=== PATIENT | female | born 1995 | race Caucasian/White ===

== ENCOUNTER 2017-02-26 21:53 | Emergency (ER) | payer MEDICAID, OTHER ==
[~2017-02-26] VITALS: Ht 167.6 cm; Wt 72.6 kg
[2017-02-26] MEDS ORDERED: ETOMIDATE IV SOLN 20 MG/10 ML VIAL IV ONE (21:56)
[2017-02-26] MEDS ORDERED: SUCCINYLCHOLINE INJ 100 MG/5 ML SYR INJ ONE (21:56)
[2017-02-26] MEDS ORDERED: LORazepam INJ 2 MG/ML (ATIVAN) VIAL ONE (21:58)
--- OUTSIDE RECORDS SUMMARY | 2017-02-26 21:59 | XMS REPORT | Continuity of Care Document ---
Author Author [facility] Address Unknown Phone Unavailable Allergies Active Description Code Type Severity Reaction Onset Reported/Identified Relationship to Patient Clinical Status Yes NO NAME AVAILABLE 00670 DRUG N/ A N/A Yes HALOPERIDOL 33077 DRUG INGREDI High Sob~Swelling 02/10/2016 02/10/2016 Yes HALOPERIDOL 89551 DRUG INGREDI N/A Swelling 02/10/2016 02/10/2016 Medications Medication Packaging Start Date Stop Date Route Dosage Sig ALUM T MAG HYDROXIDE-SIMETH 200-200-20 MG/5ML PO SUSP 02/10/2016 Oral 30 4 TIMES DAILY PRN TRAZODONE HCL 100 MG PO TABS Oral 100 BEDTIME PRN OLANZAPINE 10 MG PO TBDP 2015 Oral 10 2 TIMES DAILY PRN ACETAMINOPHEN 325 MG PO TABS Oral 650 EVERY 6 HOURS PRN MAGNESIUM HYDROXIDE 400 MG/5ML PO SUSP 02/10/2016 Oral 30 DAILY PRN QUETIAPINE FUMARATE 25 MG PO TABS 02/10/2016 Oral 25 4 TIMES DAILY PRN DROSPIRENONE-ETHINYL ESTRADIOL 3-0.03 MG PO TABS 02/10/2016 Oral 1 BEDTIME LURASIDONE HCL 40 MG PO TABS Oral 40 BEDTIME ESCITALOPRAM OXALATE 10 MG PO TABS 02/10/2016 Oral 10 BEDTIME MIRTAZAPINE 15 MG PO TABS 2015 Oral 15 BEDTIME OLANZAPINE 10 MG PO TABS 2015 Oral 10 BEDTIME LURASIDONE HCL 40 MG PO TABS Oral 40 DAILY WITH DINNER ESCITALOPRAM OXALATE 20 MG PO TABS 02/10/2016 Oral 20 BEDTIME MECLIZINE HCL 12.5 MG PO TABS Oral 12.5 3 TIMES DAILY PRN ALUM T MAG HYDROXIDE-SIMETH 200-200-20 MG/5ML PO SUSP 03/10/2016 Oral 30 4 TIMES DAILY PRN TRAZODONE HCL 100 MG PO TABS Oral 100 BEDTIME PRN OLANZAPINE 10 MG PO TBDP 2016 Oral 10 2 TIMES DAILY PRN ACETAMINOPHEN 325 MG PO TABS Oral 650 EVERY 6 HOURS PRN MAGNESIUM HYDROXIDE 400 MG/5ML PO SUSP 03/10/2016 Oral 30 DAILY PRN QUETIAPINE FUMARATE 25 MG PO TABS 03/10/2016 Oral 25 4 TIMES DAILY PRN ESCITALOPRAM OXALATE 10 MG PO TABS 03/11/2016 Oral 10 DAILY ARIPIPRAZOLE 10 MG PO TABS 2016 Oral 5 DAILY ZIPRASIDONE MESYLATE 20 MG IM SOLR 03/11/2016 Intramuscular 20 ONCE MIRTAZAPINE 15 MG PO TABS 2016 Oral 15 BEDTIME ZIPRASIDONE MESYLATE 20 MG IM SOLR 03/12/2016 Intramuscular 20 ONCE ARIPIPRAZOLE 15 MG PO TABS 2016 Oral 15 BEDTIME SODIUM CHLORIDE 0.9 % IV BOLUS 04/04/2016 Intravenous 1000 BOLUS ALUM T MAG HYDROXIDE-SIMETH 200-200-20 MG/5ML PO SUSP 04/04/2016 Oral 30 4 TIMES DAILY PRN TRAZODONE HCL 100 MG PO TABS Oral 100 BEDTIME PRN OLANZAPINE 5 MG PO TBDP 2016 Oral 5 2 TIMES DAILY PRN ACETAMINOPHEN 325 MG PO TABS Oral 650 EVERY 6 HOURS PRN MAGNESIUM HYDROXIDE 400 MG/5ML PO SUSP 04/04/2016 Oral 30 DAILY PRN QUETIAPINE FUMARATE 25 MG PO TABS 04/04/2016 Oral 25 4 TIMES DAILY PRN OLANZAPINE 2.5 MG PO TABS 2016 Oral 2.5 DAILY DIPHENHYDRAMINE HCL 50 MG/ML IJ SOLN 04/04/2016 Intramuscular 50 ONCE LURASIDONE HCL 40 MG PO TABS Oral 40 DAILY WITH DINNER DROSPIRENONE-ETHINYL ESTRADIOL 3-0.03 MG PO TABS 04/04/2016 Oral 1 BEDTIME ESCITALOPRAM OXALATE 20 MG PO TABS 04/04/2016 Oral 20 BEDTIME PRAZOSIN HCL 1 MG PO CAPS 2016 Oral 2 BEDTIME MIRTAZAPINE 15 MG PO TABS 2016 Oral 15 BEDTIME OLANZAPINE 10 MG PO TABS 2016 Oral 10 BEDTIME LEVOTHYROXINE SODIUM 50 MCG PO TABS 04/05/2016 Oral 50 EVERY MORNING BEFORE BREAKFAST OLANZAPINE 10 MG PO TBDP 2016 Oral 10 2 TIMES DAILY PRN DIPHENHYDRAMINE HCL 50 MG/ML IJ SOLN 04/06/2016 Intramuscular 50 ONCE DIPHENHYDRAMINE HCL 50 MG/ML IJ SOLN 04/06/2016 Intramuscular 50 PRN HYDROXYZINE HCL 25 MG PO TABS Oral 50 3 TIMES DAILY PRN ALUM T MAG HYDROXIDE-SIMETH 200-200-20 MG/5ML PO SUSP 11/22/2016 Oral 30 4 TIMES DAILY PRN TRAZODONE HCL 100 MG PO TABS 12/2016 Oral 100 BEDTIME PRN OLANZAPINE 10 MG PO TBDP 2016 Oral 10 2 TIMES DAILY PRN ACETAMINOPHEN 325 MG PO TABS 12/2016 Oral 650 EVERY 6 HOURS PRN MAGNESIUM HYDROXIDE 400 MG/5ML PO SUSP 11/22/2016 Oral 30 DAILY PRN QUETIAPINE FUMARATE 25 MG PO TABS 11/22/2016 Oral 25 4 TIMES DAILY PRN DIVALPROEX SODIUM ER 500 MG PO TB24 11/22/2016 Oral 500 2 TIMES DAILY BUSPIRONE HCL 10 MG PO TABS 11/22 Oral 10 2 TIMES DAILY BUSPIRONE HCL 10 MG PO TABS 11/23 Oral 10 3 TIMES DAILY DIPHENHYDRAMINE HCL 50 MG/ML IJ SOLN 11/23/2016 Intramuscular 50 ONCE ZIPRASIDONE MESYLATE 20 MG IM SOLR 11/23/2016 Intramuscular 10 ONCE Problems Date Dx Coded Attending Type Code Diagnosis Diagnosed By 02/11/2016 ADRIANA NAJERA V [id number] Suicidal [facility]ANIA, [facility] 02/11/2016 ADRIANA NAJERA P F32.9 Major depressive disorder, single episode, unspecified DANIA, [facility] 02/11/2016 ADRIANA NAJERA P R45.851 Suicidal ideations ADRIANA NAJERA 03/13/2016 IESHA AGUIRRE V [id number] Suicide Attempt IESHA AGUIRRE 03/13/2016 IESHA AGUIRRE T14.91 Suicide attempt IESHA AGUIRRE 04/07/2016 IESHA AGUIRRE V 046150 Drug Overdose IESHA AGUIRRE 04/07/2016 IESHA AGUIRRE V E03.9 Hypothyroidism, unspecified IESHA AGUIRRE 04/07/2016 IESHA AGUIRRE V F33.2 Major depressive disorder, recurrent severe without psychotic features TIMOTHY, IESHA 04/07/2016 IESHA AGUIRRE A F39 Unspecified mood (affective) disorder TIMOTHY, IESHA 04/07/2016 IESHA AGUIRRE V R20.2 Paresthesia of skin TIMOTHY, IESHA 04/07/2016 IESHA AGUIRRE T14.91 Suicide attempt TIMOTHY, IESHA 11/23/2016 IESHA AGUIRRE V [id number] Suicidal TIMOTHY, IESHA 11/23/2016 IESHA AGUIRRE P F33.2 Major depressive disorder, recurrent severe without psychotic features (HCC) TIMOTHY, IESHA 11/23/2016 IESHA AGUIRRE V F39 Unspecified mood (affective) disorder (HCC) TIMOTHY, IESHA 11/23/2016 IESHA AGUIRRE V F41.1 Generalized anxiety disorder IESHA AGUIRRE Procedures There is no data. Results Test Result Range T4, FREE - 02/10/16 05:45 FREE T4 0.94 ng/dL 0.70-1.71 CBC WITH AUTO DIFFERENTIAL - 04/03/16 21:47 BASOPHILS RELATIVE PERCENT 0.9 % 0.0-2.5 EOSINOPHILS RELATIVE PERCENT 2.7 % <=5.0 HEMATOCRIT 36.3 % 34.9-44.5 HEMOGLOBIN 12.7 g/dL 12.0-15.5 LYMPHOCYTES RELATIVE PERCENT 23.5 % 22.0-49.0 MEAN CORPUSCULAR HEMOGLOBIN 31.1 pg 26.0-34.0 MEAN CORPUSCULAR HEMOGLOBIN CONC 35.0 g/dL 31.0-37.0 MEAN CORPUSCULAR VOLUME 88.8 fL 81.6-98.3 MONOCYTES RELATIVE PERCENT 11.2 % 2.0-9.0 NEUTROPHILS RELATIVE PERCENT 61.7 % 40.0-75.0 NUCLEATED RED BLOOD CELLS 0 /100 <=0 PLATELET COUNT 350 10E9/L 150-450 RED BLOOD CELL COUNT 4.09 10E12/L 3.90-5.03 RED CELL DISTRIBUTION WIDTH 11.8 % 11.9-15.5 [id number] 9.2 10E9/L 3.5-10.5 [id number] 2.17 10E9/L 0.90-2.90 8585952 1.03 10E9/L 0.30-0.90 7687689 0.25 10E9/L 0.05-0.50 4665122 5.70 10E9/L 1.70-7.00 4495047 0.08 10E9/L 0.00-0.30 [id number] 0 % CK - 04/03/16 21:47 CPK 256 U/L 26-140 T4, FREE - 04/03/16 21:47 FREE T4 0.78 ng/dL 0.70-1.71 EXTRA LIGHT BLUE TOP - 04/03/16 21:47 1324 Extra tube in lab EXTRA LIGHT GREEN TOP - 04/03/16 21:47 1324 Extra tube in lab URINE CULTURE - 04/03/16 22:32 [id number] No Growth DRUG SCREEN (8) MEDICAL - 04/03/16 22:32 AMPHETAMINE Negative Cutoff 1000 ng/mL Negative BARBITURATES Negative Cutoff 200 ng/mL Negative BENZODIAZEPINES Negative Cutoff 200 ng/mL Negative COCAINE (METABOLITE) Negative Cutoff 300 ng/mL Negative MDMA URINE Negative Cutoff 500 ng/mL Negative OPIATES Positive Cutoff 300 ng/mL Negative PCP Negative Cutoff 25 ng/mL Negative PH UA 7.0 5.0-8.0 SPECIFIC GRAVITY UA 1.017 1.003-1.030 THC Negative Cutoff 50 ng/mL Negative SALICYLATES - 04/03/16 22:32 SALICYLATE, URINE Negative TROPONIN I - 04/05/16 06:35 TROPONIN I < ng/mL 0.000-0.040 Encounters ACCT No. Visit Date/Time Discharge Status Pt. Type Provider Facility Loc./Unit Complaint [id number] 11/22/2016 21:08:00 11/23/2016 17:30:00 DIS Inpatient [facility] [id number] 04/03/2016 21:31:44 04/07/2016 17:38:00 DIS Inpatient [facility] [id number] 03/10/2016 17:40:00 03/13/2016 13:55:00 DIS Inpatient [facility] [id number] 02/10/2016 01:56:03 02/11/2016 19:29:00 DIS Inpatient ADRIANA NAJERA [facility] [id number] 02/10/2016 03:23:11 Document Registration
[2017-02-26] MEDS ORDERED: NS IV 1000 ML 1,000 ML IV ONE (22:03)
[2017-02-26] MEDS ORDERED: LEVETIRACETAM INJECTION 500 MG in NS (IVPB) 50 ML IV ONE ×2 (22:15→23:15)
[2017-02-26] MEDS ORDERED: DIAZEPAM INJ 10 MG/2 ML (VALIUM) SYR ONE (22:18)
[2017-02-26 22:22] LABS: BASOPHILS # (AUTO) 0.1 10^3/uL (0.0-0.1); BASOPHILS % (AUTO) 1 % (0-10); EOSINOPHILS # (AUTO) 0.3 10^3/uL (0.0-0.3); EOSINOPHILS % (AUTO) 3 % (0-10); HEMATOCRIT 33 % (35-52); HEMOGLOBIN 11.3 G/DL (11.5-16.0); LYMPHOCYTES # (AUTO) 2.2 X 10^3 (1.0-4.0); LYMPHOCYTES % (AUTO) 24 % (12-44); MEAN CORPUSCULAR HEMOGLOBIN 30 PG (25-34); MEAN CORPUSCULAR HGB CONC 35 G/DL (32-36); MEAN CORPUSCULAR VOLUME 85 FL (80-99); MEAN PLATELET VOLUME 9.2 FL (7.4-10.4); MONOCYTES # (AUTO) 1.2 X 10^3 (0.0-1.0); MONOCYTES % (AUTO) 13 % (0-12); NEUTROPHILS # (AUTO) 5.2 X 10^3 (1.8-7.8); NEUTROPHILS % (AUTO) 59 % (42-75); PLATELET COUNT 372 10^3/uL (130-400); RED BLOOD COUNT 3.83 10^6/uL (4.35-5.85); RED CELL DISTRIBUTION WIDTH 11.9 % (10.0-14.5); WHITE BLOOD COUNT 8.9 10^3/uL (4.3-11.0)
[2017-02-26 22:42] LABS: BILIRUBIN,URINE NEGATIVE (NEGATIVE); CLARITY,URINE CLEAR; COLOR,URINE YELLOW; GLUCOSE, URINE (UA) NEGATIVE (NEGATIVE); KETONES,URINE NEGATIVE (NEGATIVE); LEUKOCYTE ESTERASE ,URINE NEGATIVE (NEGATIVE); NITRITE,URINE NEGATIVE (NEGATIVE); PH,URINE 7 (5-9); PROTEIN,URINE NEGATIVE (NEGATIVE); UROBILINOGEN,URINE NORMAL (NORMAL)
[2017-02-26 22:46] LABS: ALANINE AMINOTRANSFERASE 10 U/L (0-55); ALKALINE PHOSPHATASE 60 U/L (40-136); BILIRUBIN,TOTAL 0.2 MG/DL (0.1-1.0); BUN/CREATININE RATIO 5; CALCIUM 8.6 MG/DL (8.5-10.1); CARBON DIOXIDE 19 MMOL/L (21-32); CHLORIDE 107 MMOL/L (98-107); CREATINE KINASE 102 U/L (29-168); CREATININE SERUM 0.76 MG/DL (0.60-1.30); GFR ESTIMATED > 60; GLUCOSE 107 MG/DL (70-105); MAGNESIUM 2.1 MG/DL (1.8-2.4); POTASSIUM 3.3 MMOL/L (3.6-5.0); SODIUM 140 MMOL/L (135-145); TOTAL PROTEIN 7.2 GM/DL (6.4-8.2)
[2017-02-26 22:49] LABS: AMPHETAMINE SCREEN, URINE NEGATIVE (NEGATIVE); BARBITURATE SCREEN URINE POSITIVE (NEGATIVE); BENZODIAZEPINES SCREEN URINE POSITIVE (NEGATIVE); CANNABINOID SCREEN, URINE NEGATIVE (NEGATIVE); COCAINE SCREEN URINE NEGATIVE (NEGATIVE); METHADONE STAT NEGATIVE (NEGATIVE); METHAMPHETAMINE SCREEN URINE S NEGATIVE (NEGATIVE); OPIATE SCREEN URINE NEGATIVE (NEGATIVE); OXYCODONE STAT NEGATIVE (NEGATIVE); PROPOXYPHENE STAT NEGATIVE (NEGATIVE); TRICYCLIC ANTIDEPRESSANTS SCRE NEGATIVE (NEGATIVE)
[2017-02-26 22:51] LABS: SQUAMOUS EPITHELIAL CELL,UR RARE /HPF
[2017-02-26 23:05] LABS: TSH (THYROID ANALYZER) 9.57 UIU/ML (0.35-4.94)
[2017-02-26] MEDS ORDERED: MIDAZOLAM 5 MG/5 ML (VERSED) VIAL ONE (23:38)
[2017-02-27 00:08] LABS: FREE T4 (FREE THYROXINE) 0.69 NG/DL (0.70-1.48)
--- NOTE | 2017-02-27 00:39 | ED Neurological Problem ---
General Chief Complaint: Neurological Problems Stated Complaint: SEIZURE Nursing Triage Note: PT TO ER BY PRIVATE VEHICLE. [facility] INDIAN NANNY STATES THAT HE IS A ROUGHER HELPER AND PICKED HER UP FROM [place] AND WAS TAKING HER BACK TO [place]. HE STATES WHILE IN ROUTE, PT HAD A SEIZURE. INDIAN NANNY STATES THAT PT WAS AT [facility] THIS MORNING AND YESTERDAY. PT LEFT AMA THIS AM. PT IS NOT RESPONDING TO STAFF. PT DID BARE WEIGHT WHEN TRANSFERRING FROM WHEELCHAIR TO ER CART. Source: patient, other (patient's friend "Goldy") Exam Limitations: clinical condition History of Present Illness Time seen by provider: 21:55 Initial Comments This 20-year-old young lady is brought to the emergency room unresponsive by a friend who is known to the patient over the past couple of days as a cable maker. Patient apparently has been staying at the [facility] in [place], [place] ( [facility]). Her friend "Goldy" has been transporting her to and from [facility] for seizure disorder. Patient identifies him as her "best friend". Patient has been having recurrent seizures over the past couple of days. She has been seen multiple times at [facility] for these seizures but has been leaving AGAINST MEDICAL ADVICE. She reports seizure started about a year ago after a head injury. She was initially unresponsive but occasionally does talk between these seizure episodes. I contacted the [facility] at 22:[address] Green who had seen her last night. She was actually intubated at that time because she was demonstrating no gag reflex. She was admitted to the ICU and left AGAINST MEDICAL ADVICE this morning after extubated. Her workup there was unremarkable including CT scan and lumbar puncture. Dr. Green also stated that patient's father reported to ER staff that patient told father she sometimes fakes seizures. She has been admitted at the psychiatric hospital in [place], [place] for behavioral health issues. She states a history of depression but states she is not suicidal. She reports she is normally on Keppra. Goldy states that she typically has seizures in clusters of 5 or 6. He has observed 4-5 episodes of these clusters of seizure- like activity. Patient reports at one point that she has abdominal pain. This was assessed by CT scan at [facility]. Patient seizure-like activity involves the torso and spares the extremities and head. She has had no incontinence during these episodes. Pulse ox levels do not change during the episodes but heart rate increases. Allergies and Home Medications Allergies Coded Allergies: haloperidol (Unverified Allergy, Unknown, 02/27/17) Constitutional: no symptoms reported Eyes: No Symptoms Reported Ears, Nose, Mouth, Throat: no symptoms reported Respiratory: no symptoms reported Cardiovascular: no symptoms reported Gastrointestinal: see HPI, abdominal pain Genitourinary: no symptoms reported Musculoskeletal: no symptoms reported Skin: no symptoms reported Psychiatric/Neurological: See HPI Endocrine: No Symptoms Reported Hematologic/Lymphatic: No Symptoms Reported Past Pqfuinq-Sfjnqu-Qoosvn Hx Patient Social History Alcohol Use: Denies Use Recent Foreign Travel: No Contact w/Someone Who Travel: No Recent Infectious Disease Expo: No Ebola Symptoms: Denies Symptoms Listed Surgeries History of Surgeries: No (unknown) Respiratory History of Respiratory Disorde: No Cardiovascular History of Cardiac Disorders: No Neurological History of Neurological Disord: Yes Neurological Disorders: Seizure Disorder Reproductive System : No Genitourinary History of Genitourinary Disor: No Gastrointestinal History of Gastrointestinal Di: No Musculoskeletal History of Musculoskeletal Dis: No Endocrine History of Endocrine Disorders: No HEENT History of HEENT Disorders: No Cancer History of Cancer: No Psychosocial History of Psychiatric Problem: Yes Behavioral Health Disorders: Depression Physical Exam Vital Signs Vital Sign - Last 12Hours 02/26/17 02/27/17 21:58 03:27 Temp 98.3 Pulse 120 Resp 25 B/P (MAP) 144/90 Pulse Ox 100 O2 Delivery Room Air Capillary Refill : General Appearance: WD/WN, no apparent distress HEENT: PERRL/EOMI (pupils dilated but responsive and equal bilaterally), normal ENT inspection Respiratory: lungs clear, normal breath sounds, no respiratory distress, no accessory muscle use Cardiovascular: regular rate, rhythm, no edema, no murmur Gastrointestinal: normal bowel sounds, non tender, soft Extremities: normal inspection, no pedal edema Neurologic/Psychiatric: other (patient intermittently has seizure-like activity with waxing and waning responsiveness. At times she talks and answers questions appropriately. Convulsions involved primarily the torso with limited movement of the extremities and head.) Skin: normal color, warm/dry Date of ETT Placement: Feb 27, 2017 Time of ETT Placement: 02:58 Intubation Method: orotracheal Tube Size: 7.5 Medications: Etomidate, Succinylcholine Breath Sounds after Intubation: bilateral-equal Intubation Complications: no complications Post Intubation Xray: Yes Progress/Results/Core Measures Results/Orders Lab Results Laboratory Tests Test 02/26/17 21:58 02/26/17 22:15 02/26/17 22:30 02/27/17 02:38 Range/Units Glucometer 98 85 70-110 MG/DL White Blood Count 8.9 4.3-11.0 10^3/uL Red Blood Count 3.83 L 4.35-5.85 10^6/uL Hemoglobin 11.3 L 11.5-16.0 G/DL Hematocrit 33 L 35-52 % Mean Corpuscular Volume 85 80-99 FL Mean Corpuscular Hemoglobin 30 25-34 PG Mean Corpuscular Hemoglobin Concent 35 32-36 G/DL Red Cell Distribution Width 11.9 10.0-14.5 % Platelet Count 372 130-400 10^3/uL Mean Platelet Volume 9.2 7.4-10.4 FL Neutrophils (%) (Auto) 59 42-75 % Lymphocytes (%) (Auto) 24 12-44 % Monocytes (%) (Auto) 13 H 0-12 % Eosinophils (%) (Auto) 3 0-10 % Basophils (%) (Auto) 1 0-10 % Neutrophils # (Auto) 5.2 1.8-7.8 X 10^3 Lymphocytes # (Auto) 2.2 1.0-4.0 X 10^3 Monocytes # (Auto) 1.2 H 0.0-1.0 X 10^3 Eosinophils # (Auto) 0.3 0.0-0.3 10^3/uL Basophils # (Auto) 0.1 0.0-0.1 10^3/uL Sodium Level 140 135-145 MMOL/L Potassium Level 3.3 L 3.6-5.0 MMOL/L Chloride Level 107 98-107 MMOL/L Carbon Dioxide Level 19 L 21-32 MMOL/L Anion Gap 14 5-14 MMOL/L Blood Urea Nitrogen 4 L 7-18 MG/DL Creatinine 0.76 0.60-1.30 MG/DL Estimat Glomerular Filtration Rate > 60 BUN/Creatinine Ratio 5 Glucose Level 107 H 70-105 MG/DL Calcium Level 8.6 8.5-10.1 MG/DL Magnesium Level 2.1 1.8-2.4 MG/DL Total Bilirubin 0.2 0.1-1.0 MG/DL Aspartate Amino Transf (AST/SGOT) 15 5-34 U/L Alanine Aminotransferase (ALT/SGPT) 10 0-55 U/L Alkaline Phosphatase 60 40-136 U/L Total Creatine Kinase 102 29-168 U/L Total Protein 7.2 6.4-8.2 GM/DL Albumin 4.0 3.2-4.5 GM/DL Free Thyroxine 0.69 L 0.70-1.48 NG/DL TSH [place] Testing 9.57 H 0.35-4.94 UIU/ML Serum Test, Qualitative NEGATIVE NEGATIVE Valproic Acid (Depakene) Level < 2.0 L 50.0-100.0 UG/ML Serum Alcohol < 10 <10 MG/DL Urine Color YELLOW Urine Clarity CLEAR Urine pH 7 5-9 Urine Specific [place] 1.005 L 1.016-1.022 Urine Protein NEGATIVE NEGATIVE Urine Glucose (UA) NEGATIVE NEGATIVE Urine Ketones NEGATIVE NEGATIVE Urine Nitrite NEGATIVE NEGATIVE Urine Bilirubin NEGATIVE NEGATIVE Urine Urobilinogen NORMAL NORMAL MG/DL Urine Leukocyte Esterase NEGATIVE NEGATIVE Urine RBC (Auto) NEGATIVE NEGATIVE Urine RBC NONE /HPF Urine WBC NONE /HPF Urine Squamous Epithelial Cells RARE /HPF Urine Crystals NONE /LPF Urine Bacteria NONE /HPF Urine Casts NONE /LPF Urine Mucus NEGATIVE /LPF Urine Culture Indicated NO Urine Opiates Screen NEGATIVE NEGATIVE Urine Oxycodone Screen NEGATIVE NEGATIVE Urine Methadone Screen NEGATIVE NEGATIVE Urine Propoxyphene Screen NEGATIVE NEGATIVE Urine Barbiturates Screen POSITIVE H NEGATIVE Ur Tricyclic Antidepressants Screen NEGATIVE NEGATIVE Urine Phencyclidine Screen NEGATIVE NEGATIVE Urine Amphetamines Screen NEGATIVE NEGATIVE Urine Methamphetamines Screen NEGATIVE NEGATIVE Urine Benzodiazepines Screen POSITIVE H NEGATIVE Urine Cocaine Screen NEGATIVE NEGATIVE Urine Cannabinoids Screen NEGATIVE NEGATIVE Micro Results Microbiology 02/26/17 Influenza Types A,B Antigen (PATRICE) - Final, Complete My Orders Orders - LUIS ANTONIO PORTILLO MD Lorazepam Injection (Ativan Injection) (02/26/17 21:58) Alcohol (02/26/17 22:03) Cbc With Automated Diff (02/26/17 22:03) Comprehensive Metabolic Panel (02/26/17 22:03) Creatine Kinase (02/26/17 22:03) Drug Screen Stat (Urine) (02/26/17 22:03) Hcg,Qualitative Serum (02/26/17 22:03) Magnesium (02/26/17 22:03) Thyroid Analyzer (02/26/17 22:03) Ua Culture If Indicated (02/26/17 22:03) Influenza A And B Antigens (02/26/17 22:03) Saline Lock/Iv-Start (02/26/17 22:03) Chest 1 View, Ap/Pa Only (02/26/17 22:03) Best Cath Insertion (02/26/17 22:03) Ns Iv 1000 Ml (Sodium Chloride 0.9%) (02/26/17 22:03) Levetiracetam Injection (Keppra Injectio (02/26/17 22:15) Diazepam Injection (Valium Injection) (02/26/17 22:18) Dilantin (Phenytoin) (02/26/17 22:39) Valproic Acid (02/26/17 22:39) Levetiracetam Injection (Keppra Injectio (02/26/17 23:15) Free T4 (Free Thyroxine) (02/26/17 22:15) Midazolam Injection (Versed Injection) (02/26/17 23:38) Diazepam Injection (Valium Injection) (02/27/17 01:00) Fosphenytoin Injection (Cerebyx Injectio (02/27/17 01:00) Phenytoin Injection (Dilantin Injection) (02/27/17 01:15) Valproate Inj (Non-Formulary) (Depacon ( (02/27/17 01:15) Ns (Ivpb) (Sodium Chloride 0.9% Ivpb Bag (02/27/17 01:33) Midazolam Injection (Versed Injection) (02/27/17 02:15) Midazolam Injection (Versed Injection) (02/27/17 02:09) Lactated Ringers (Lr 1000 Ml Iv Solution (02/27/17 02:59) Chest 1 View, Ap/Pa Only (02/27/17 03:02) Medications Given in ED Current Medications Medications Dose Ordered Sig/Mustapha Route Start Time Stop Time Status Last Admin Dose Admin Diazepam 5 mg ONCE ONCE IV 02/27/17 01:00 02/27/17 01:02 DC 02/27/17 00:53 5 MG Diazepam 10 mg STK-MED ONCE .ROUTE 02/26/17 22:18 02/26/17 22:21 DC 02/26/17 22:18 5 MG Lactated Ringer's 1,000 ml @ 0 mls/hr Q0M ONCE IV 02/27/17 02:59 02/27/17 03:00 DC 02/27/17 03:32 0 MLS/HR Levetiracetam 500 mg/Sodium Chloride 55 ml @ 220 mls/hr ONCE ONCE IV 02/26/17 22:15 02/26/17 22:29 DC 02/26/17 22:20 220 MLS/HR Levetiracetam 500 mg/Sodium Chloride 55 ml @ 220 mls/hr ONCE ONCE IV 02/26/17 23:15 02/26/17 23:29 DC 02/26/17 23:19 220 MLS/HR Lorazepam 2 mg STK-MED ONCE .ROUTE 02/26/17 21:58 02/26/17 22:02 DC 02/26/17 22:00 2 MG Midazolam HCl 5 mg STK-MED ONCE .ROUTE 02/26/17 23:38 02/26/17 23:41 DC 02/26/17 23:43 5 MG Midazolam HCl 5 mg STK-MED ONCE .ROUTE 02/27/17 02:09 02/27/17 02:12 DC 02/27/17 02:15 5 MG Sodium Chloride 1,000 ml @ 0 mls/hr Q0M ONCE IV 02/26/17 22:03 02/26/17 22:08 DC 02/26/17 22:50 1,000 MLS/HR Valproate Sodium 1000 mg/Sodium Chloride 110 ml @ 110 mls/hr ONCE ONCE IV 02/27/17 01:15 02/27/17 02:14 DC 02/27/17 01:41 110 MLS/HR Vital Signs/I&O Vital Sign - Last 12Hours 02/26/17 02/27/17 21:58 03:27 Temp 98.3 98.0 Pulse 120 70 Resp 25 20 B/P (MAP) 144/90 Pulse Ox 100 O2 Delivery Room Air Room Air Intake and Output 02/26/17 23:59 Intake Total 1110 ml Balance 1110 ml Progress Note #1: Time: 00:00 Progress Note Patient has received Ativan 2 mg IM, followed by Valium 5 mg IV, followed by Keppra 1000 mg IV. Patient continues to have intermittent seizure-like activity. The episodes last approximately 15-30 seconds. Heart rate will increase the oxygen saturation remains in the upper 90s during these episodes. The convulsions involve the torso but not the arms or legs. Patient is unresponsive during the episodes. I contacted Dr. Paredes at 22:50. He is the neurologist on-call for [facility] and is familiar with this patient. He agrees transfer would be appropriate so the patient could be assessed by neurology and psychiatric services. He also reported patient had a negative EEG performed at [facility] but concurrent seizure and pseudoseizure cannot be completely ruled out. Transfer center and then paged to the hospitalist. The hospitalist service declined to accept the patient because she has left their facility 3 times AGAINST MEDICAL ADVICE. Versed 5 mg IV was given at 23:43 after Keppra infused and she had another seizure-like episode. Progress Note #2: Time: 00:20 Progress Note Case was reviewed with Dr. Blake, hospitalist at [facility] in [place]. He declined transfer of this patient because they are on ICU diversion. [facility] was then contacted. I am awaiting a call back from the triage nurse. Patient continues to have intermittent seizure-like activity with episodes lasting 15-30 seconds. She has been intermittently awake and talking between the episodes. Progress Note #3: Time: 00:57 Progress Note Patient continues to have brief episodes of seizure-like activity with some lucid conversation in between some of them. The frequency is variable. Another dose of Valium 5 mg has been administered and a loading dose of fosphenytoin has been ordered to initiate while awaiting a call back from [facility]. It was noted that patient has thyroid imbalance. She does have a history of hypothyroidism. Progress Note #4: Time: 02:27 Progress Note Transfer was accepted by Dr. Hager, , neuro in home sales consultant at [facility]. Initially we planned to transfer her by ground but EMS will not drive to [place] with ice on the roads. Patient also has had multiple prolonged seizure-like episodes since except as to [facility]. For this reason she will be intubated for transfer. [facility] is in route for the transfer. Patient received an additional Versed 5 mg dose. Depakote is still infusing. She continues to have seizure-like episodes. She does continue to talk between the episodes on occasion. [facility] was provided an update with the change in transfer plans and they are agreeable. Progress Note #5: Time: 03:00 Progress Note Patient's mental status did improve. She was actually awake and alert and able to sit up and signed papers for transfer. Patient was agreeable to transfer and intubation. Although she was alert at the time of transport team arrival, it was still felt safer to intubate her for transfer as she had recently had multiple prolonged seizures, one lasting greater than 5 minutes. Patient was ultimately intubated using etomidate 20 mg and succinylcholine 100 mg. Progress Note #6: Time: :26 Progress Note Patient departed intubated with [facility] bound for [facility]. Diagnostic Imaging Diagonstic Imaging: Xray Plain Films/CT/US/NM/MRI: chest Comments Chest x-ray viewed by me. Report not yet available. No acute abnormalities appreciated. Diagonstic Imaging: Xray Plain Films/CT/US/NM/MRI: chest Comments Chest x-ray viewed by me. ET tube in good position. Report not yet available. Critical Care Note Critical Care Start Time: 02:58 Stop Time: 03:18 Progress 03:13 - Patient experienced a drop in oxygen saturation into the 70s. She was found to have an equal chest rise and decreased breath sounds on the left. ET tube was pulled back and breath sounds returned to the left side of the chest. Oxygen saturations recovered. Patient required further sedation during ET tube adjustment. She received an additional Versed 5 mg and fentanyl 100 g. 03:18 - ET tube in good position on x-ray. Options saturations at 100 percent. Departure Impression Impression: Primary Impression: Recurrent seizures Additional Impression: Thyroid dysfunction Disposition: XFER SHT-TRM HOSP Condition: Stable Transfer Transfer Facility: [facility] Method of Transfer: Air Departure-Patient Inst. Decision time for Depature: 03:26 Referrals: NO,LOCAL PHYSICIAN (PCP/Family) Primary Care Physician LUIS ANTONIO PORTILLO MD Feb 27, 2017 00:39
[2017-02-27] MEDS ORDERED: DIAZEPAM INJ 10 MG/2 ML (VALIUM) SYR IV ONE (01:00)
[2017-02-27] MEDS ORDERED: FOSPHENYTOIN 50 MG/ML 2 ML (cereBYX) VIAL IV ONE (01:00)
[2017-02-27] MEDS ORDERED: NS IV ONE (01:15)
[2017-02-27] MEDS ORDERED: VALPROATE IV ONE (01:15)
[2017-02-27] MEDS ORDERED: PHENYTOIN INJECTION 1,000 MG in NS (IVPB) 50 ML, 0.2 MICRON FILTER IV SET 1 EACH IV ONE ×3 (01:15)
[2017-02-27] MEDS ORDERED: NS (IVPB) 100 ML ONE (01:33)
[2017-02-27] MEDS ORDERED: MIDAZOLAM 5 MG/5 ML (VERSED) VIAL ONE (02:09)
[2017-02-27] MEDS ORDERED: MIDAZOLAM 5 MG/5 ML (VERSED) VIAL IVP ONE (02:15)
[2017-02-27] MEDS ORDERED: LACTATED RINGERS 1,000 ML IV ONE (02:59)
--- NOTE | 2017-02-27 06:43 | Diagnostic Imaging Report ---
INDICATION: Seizure and unresponsiveness. 2231 hours. COMPARISON: No previous study is available for comparison at this time. FINDINGS: Heart size and pulmonary vasculature are within normal limits, and the lungs are clear, bilaterally. IMPRESSION: Unremarkable chest. Dictated by: Dictated on workstation # [id number]
--- NOTE | 2017-02-27 06:45 | Diagnostic Imaging Report ---
INDICATION: Respiratory failure. Single AP view of the chest is obtained at 0316 hours. Comparison is made study of 02/26/2017. FINDINGS: Heart size and pulmonary vascularity are within normal limits. There is no evidence of pneumothorax or consolidation. Endotracheal tube has been placed with tip at the thoracic inlet. Nasogastric tube passes below the diaphragm. Mildly prominent interstitial markings in the left lung base may be due to interstitial edema or pneumonitis. IMPRESSION: Endotracheal tube reaches the thoracic inlet. There may be mild interstitial edema or pneumonitis in the left lung base. Otherwise no complication is seen. Dictated by: Dictated on workstation # [id number]
== END 2017-02-27 03:27 | disposition short-term general hospital (02) ==
LOC: ER 21:55
DX: G40.909 Epilepsy, unspecified, not intractable, without status epilepticus (principal); E07.9 Disorder of thyroid, unspecified; F32.9 Major depressive disorder, single episode, unspecified
CPT/HCPCS: 31500; 36415; 51702; 71045; 80053; 80164; 80185; 80306; 80320; 81000; 82550; 82962; 83735; 84439; 84443; 84703; 85025; 87804; 96365; 96367; 96375; 96376

== ENCOUNTER 2017-02-28 13:36 | Emergency (ER) | payer SELFPAY ==
[~2017-02-28] VITALS: Ht 162.6 cm; Wt 68.0 kg
[~2017-02-28 13:36] MED LIST: AMMONIA INHALATION 0.33 ML AMP ONE; NALOXONE 2 MG/2 ML (NARCAN) SYR ONE
--- OUTSIDE RECORDS SUMMARY | 2017-02-28 13:42 | XMS REPORT | Continuity of Care Document ---
Author Author [facility] Address Unknown Phone Unavailable Allergies Active Description Code Type Severity Reaction Onset Reported/Identified Relationship to Patient Clinical Status Yes NO NAME AVAILABLE 81137 DRUG N/ A N/A Yes HALOPERIDOL 18923 DRUG INGREDI High Sob~Swelling 02/10/2016 02/10/2016 Yes HALOPERIDOL 37290 DRUG INGREDI N/A Swelling 02/10/2016 02/10/2016 Medications [...] Diagnosis Diagnosed By 02/11/2016 ADRIANA NAJERA V 970999 Suicidal [facility], [facility] 02/11/2016 ADRIANA NAJERA P F32.9 Major depressive disorder, single episode, unspecified [facility]ANIA, [facility] 02/11/2016 ADRIANA NAJERA P R45.851 Suicidal ideations ADRIANA NAJERA 03/13/2016 IESHA AGUIRRE V 146375 Suicide Attempt IESHA AGUIRRE 03/13/2016 IESHA AGUIRRE T14.91 Suicide attempt IESHA AGUIRRE 04/07/2016 IESHA AGUIRRE V 011402 Drug Overdose IESHA AGUIRRE 04/07/2016 IESHA AGUIRRE V E03.9 Hypothyroidism, unspecified IESHA AGUIRRE 04/07/2016 IESHA AGUIRRE V F33.2 Major depressive disorder, recurrent severe without psychotic features TIMOTHY, IESHA 04/07/2016 IESHA AGUIRRE A F39 Unspecified mood (affective) disorder TIMOTHY, IESHA 04/07/2016 IESHA AGUIRRE V R20.2 Paresthesia of skin TIMOTHY, IESHA 04/07/2016 IESHA AGUIRRE T14.91 Suicide attempt TIMOTHY, IESHA 11/23/2016 IESHA AGUIRRE V 445759 Suicidal TIMOTHY, IESHA 11/23/2016 IESHA AGUIRRE P [...] RED CELL DISTRIBUTION WIDTH 11.8 % 11.9-15.5 0250843 9.2 10E9/L 3.5-10.5 7617901 2.17 10E9/L 0.90-2.90 4351847 1.03 10E9/L 0.30-0.90 8046006 0.25 10E9/L 0.05-0.50 8645411 5.70 10E9/L 1.70-7.00 [id number] 0.08 10E9/L 0.00-0.30 6411143 0 % CK - 04/03/16 21:47 CPK 256 U/L 26-140 T4, FREE - 04/03/16 21:47 FREE T4 0.78 ng/dL 0.70-1.71 EXTRA LIGHT BLUE TOP - 04/03/16 21:47 1324 Extra tube in lab EXTRA LIGHT GREEN TOP - 04/03/16 21:47 1324 Extra tube in lab URINE CULTURE - 04/03/16 22:32 [id number] No Growth DRUG SCREEN (8) MEDICAL - [...] Status Pt. Type Provider Facility Loc./Unit Complaint [id number] 11/22/2016 21:08:00 11/23/2016 17:30:00 DIS Inpatient [facility] [id number] 04/03/2016 21:31:44 04/07/2016 17:38:00 DIS Inpatient [facility] [id number] 03/10/2016 17:40:00 03/13/2016 13:55:00 DIS Inpatient [facility] [id number] 02/10/2016 01:56:03 02/11/2016 19:29:00 DIS Inpatient ADRIANA NAJERA [facility] [id number] 02/10/2016 03:23:11 Document Registration
[2017-02-28] MEDS ORDERED: AMMONIA INHALATION 0.33 ML AMP ONE (13:47)
[2017-02-28 14:05] LABS: BASOPHILS # (AUTO) 0.1 10^3/uL (0.0-0.1); BASOPHILS % (AUTO) 1 % (0-10); EOSINOPHILS # (AUTO) 0.5 10^3/uL (0.0-0.3); EOSINOPHILS % (AUTO) 7 % (0-10); HEMATOCRIT 33 % (35-52); HEMOGLOBIN 11.2 G/DL (11.5-16.0); LYMPHOCYTES % (AUTO) 25 % (12-44); MEAN CORPUSCULAR HEMOGLOBIN 29 PG (25-34); MEAN CORPUSCULAR HGB CONC 34 G/DL (32-36); MEAN CORPUSCULAR VOLUME 85 FL (80-99); MEAN PLATELET VOLUME 9.6 FL (7.4-10.4); MONOCYTES % (AUTO) 13 % (0-12); NEUTROPHILS # (AUTO) 4.3 X 10^3 (1.8-7.8); NEUTROPHILS % (AUTO) 54 % (42-75); PLATELET COUNT 380 10^3/uL (130-400); RED BLOOD COUNT 3.83 10^6/uL (4.35-5.85); RED CELL DISTRIBUTION WIDTH 12.1 % (10.0-14.5)
[2017-02-28 14:08] LABS: BILIRUBIN,URINE NEGATIVE (NEGATIVE); CLARITY,URINE CLEAR; COLOR,URINE YELLOW; GLUCOSE, URINE (UA) NEGATIVE (NEGATIVE); KETONES,URINE 1+ (NEGATIVE); LEUKOCYTE ESTERASE ,URINE 3+ (NEGATIVE); NITRITE,URINE NEGATIVE (NEGATIVE); PH,URINE 7 (5-9); PROTEIN,URINE NEGATIVE (NEGATIVE); UROBILINOGEN,URINE 4 MG/DL (NORMAL)
[2017-02-28 14:18] LABS: BACTERIA,URINE MODERATE /HPF; PROTHROMBIN TIME PATIENT 13.2 SEC (12.2-14.7); RBC,URINE RARE /HPF; WBC,URINE 25-50 /HPF
[2017-02-28 14:19] LABS: AMPHETAMINE SCREEN, URINE NEGATIVE (NEGATIVE); BARBITURATE SCREEN URINE POSITIVE (NEGATIVE); BENZODIAZEPINES SCREEN URINE POSITIVE (NEGATIVE); CANNABINOID SCREEN, URINE NEGATIVE (NEGATIVE); COCAINE SCREEN URINE NEGATIVE (NEGATIVE); METHADONE STAT NEGATIVE (NEGATIVE); METHAMPHETAMINE SCREEN URINE S NEGATIVE (NEGATIVE); OPIATE SCREEN URINE NEGATIVE (NEGATIVE); OXYCODONE STAT NEGATIVE (NEGATIVE); PROPOXYPHENE STAT NEGATIVE (NEGATIVE); TRICYCLIC ANTIDEPRESSANTS SCRE NEGATIVE (NEGATIVE)
[2017-02-28 14:29] LABS: ALANINE AMINOTRANSFERASE 12 U/L (0-55); ALBUMIN 4.1 GM/DL (3.2-4.5); ALKALINE PHOSPHATASE 66 U/L (40-136); BILIRUBIN,TOTAL 0.1 MG/DL (0.1-1.0); BUN/CREATININE RATIO 12; CALCIUM 9.5 MG/DL (8.5-10.1); CARBON DIOXIDE 23 MMOL/L (21-32); CHLORIDE 107 MMOL/L (98-107); CREATINE KINASE 95 U/L (29-168); CREATININE SERUM 0.76 MG/DL (0.60-1.30); GFR ESTIMATED > 60; GLUCOSE 92 MG/DL (70-105); POTASSIUM 4.4 MMOL/L (3.6-5.0); SODIUM 141 MMOL/L (135-145); TOTAL PROTEIN 7.5 GM/DL (6.4-8.2)
[2017-02-28 14:32] LABS: ACETAMINOPHEN < 10 UG/ML (10-30)
[2017-02-28 14:48] LABS: CREATINE KINASE MB 0.5 NG/ML (<6.6); TSH (THYROID ANALYZER) 8.54 UIU/ML (0.35-4.94)
--- NOTE | 2017-02-28 15:08 | Diagnostic Imaging Report ---
INDICATION: Seizure and found down. TECHNIQUE: Axial imaging through the brain was performed without contrast. COMPARISON: No prior studies are available for comparison. FINDINGS: The ventricles and sulci are within normal limits. No sulcal effacement, midline shift, or hemorrhage is detected. Cisterns are patent. The visualized paranasal sinuses are clear. IMPRESSION: No acute intracranial process is detected. Dictated by: Dictated on workstation # [id number]
--- NOTE | 2017-02-28 15:17 | Diagnostic Imaging Report ---
INDICATION: Possible seizure. COMPARISON: 02/27/2017. FINDINGS: Upright portable view of the chest is obtained. Heart size is normal. The pulmonary vessels appear unremarkable. There is no pneumothorax, mediastinal widening, or pleural fluid. The lungs are clear. IMPRESSION: Negative chest. Dictated by: Dictated on workstation # [id number]
--- NOTE | 2017-02-28 15:19 | ED General ---
General Chief Complaint: Altered Mental Status Stated Complaint: SEIZURES Nursing Triage Note: pt presents to ed via private vehicle with male friend. friend reports pt has had seizures today and is unresponsive in his car. Pt wheeled in cot to room 5. Pt given ammonia salts and starts coughing. Allergies and Home Medications Allergies Coded Allergies: haloperidol (Unverified Allergy, Unknown, 02/27/17) Past Wcsojfa-[id number]-Wuurjv Hx Patient Social History Alcohol Use: Denies Use Recreational Drug Use: No Smoking Status: Never a Smoker Recent Foreign Travel: No Contact w/Someone Who Travel: No Recent Hopitalizations: Yes (GONZALEZ) Physical Abuse: No Sexual Abuse: No Mistreated: No Fear: No Surgeries History of Surgeries: No Respiratory History of Respiratory Disorde: No Cardiovascular History of Cardiac Disorders: No Neurological History of Neurological Disord: Yes Neurological Disorders: Seizure Disorder Genitourinary History of Genitourinary Disor: No Gastrointestinal History of Gastrointestinal Di: No Musculoskeletal History of Musculoskeletal Dis: No Endocrine History of Endocrine Disorders: No Endocrine Disorders: Hypothyroidsim HEENT History of HEENT Disorders: No Cancer History of Cancer: No Psychosocial History of Psychiatric Problem: Yes Behavioral Health Disorders: Anxiety, Depression Suicide Risk Score: 0 Integumentary History of Skin or Integumenta: No Blood Transfusions History of Blood Disorders: No Adverse Reaction to a Blood Tr: No Physical Exam Vital Signs Vital Sign - Last 12Hours 02/28/17 13:36 Temp 98.0 Pulse 106 Resp 23 B/P (MAP) 137/77 Capillary Refill : Date of ETT Placement: Feb 27, 2017 Time of ETT Placement: 0258 Progress/Results/Core Measures Suspected Sepsis SIRS Temperature:98.0 Pulse: Respiratory Rate: Laboratory Tests 02/28/17 13:44: White Blood Count 8.0 Blood Pressure / Mean: Laboratory Tests 02/28/17 13:44: Creatinine 0.76, INR Comment 1.0, Platelet Count 380, Total Bilirubin 0.1 Results/Orders Lab Results Laboratory Tests Test 02/28/17 13:44 Range/Units White Blood Count 8.0 4.3-11.0 10^3/uL Red Blood Count 3.83 L 4.35-5.85 10^6/uL Hemoglobin 11.2 L 11.5-16.0 G/DL Hematocrit 33 L 35-52 % Mean Corpuscular Volume 85 80-99 FL Mean Corpuscular Hemoglobin 29 25-34 PG Mean Corpuscular Hemoglobin Concent 34 32-36 G/DL Red Cell Distribution Width 12.1 10.0-14.5 % Platelet Count 380 130-400 10^3/uL Mean Platelet Volume 9.6 7.4-10.4 FL Neutrophils (%) (Auto) 54 42-75 % Lymphocytes (%) (Auto) 25 12-44 % Monocytes (%) (Auto) 13 H 0-12 % Eosinophils (%) (Auto) 7 0-10 % Basophils (%) (Auto) 1 0-10 % Neutrophils # (Auto) 4.3 1.8-7.8 X 10^3 Lymphocytes # (Auto) 2.0 1.0-4.0 X 10^3 Monocytes # (Auto) 1.0 0.0-1.0 X 10^3 Eosinophils # (Auto) 0.5 H 0.0-0.3 10^3/uL Basophils # (Auto) 0.1 0.0-0.1 10^3/uL Prothrombin Time 13.2 12.2-14.7 SEC INR Comment 1.0 0.8-1.4 Activated Partial Thromboplast Time 30 24-35 SEC Urine Color YELLOW Urine Clarity CLEAR Urine pH 7 5-9 Urine Specific [place] 1.015 L 1.016-1.022 Urine Protein NEGATIVE NEGATIVE Urine Glucose (UA) NEGATIVE NEGATIVE Urine Ketones 1+ H NEGATIVE Urine Nitrite NEGATIVE NEGATIVE Urine Bilirubin NEGATIVE NEGATIVE Urine Urobilinogen 4 H NORMAL MG/DL Urine Leukocyte Esterase 3+ H NEGATIVE Urine RBC (Auto) NEGATIVE NEGATIVE Urine RBC RARE /HPF Urine WBC 25-50 H /HPF Urine Squamous Epithelial Cells 10-25 H /HPF Urine Renal Epithelial Cells NONE /HPF Urine Crystals NONE /LPF Urine Bacteria MODERATE H /HPF Urine Casts NONE /LPF Urine Mucus MODERATE H /LPF Urine Culture Indicated YES Sodium Level 141 135-145 MMOL/L Potassium Level 4.4 3.6-5.0 MMOL/L Chloride Level 107 98-107 MMOL/L Carbon Dioxide Level 23 21-32 MMOL/L Anion Gap 11 5-14 MMOL/L Blood Urea Nitrogen 9 7-18 MG/DL Creatinine 0.76 0.60-1.30 MG/DL Estimat Glomerular Filtration Rate > 60 BUN/Creatinine Ratio 12 Glucose Level 92 70-105 MG/DL Calcium Level 9.5 8.5-10.1 MG/DL Magnesium Level 2.0 1.8-2.4 MG/DL Total Bilirubin 0.1 0.1-1.0 MG/DL Aspartate Amino Transf (AST/SGOT) 18 5-34 U/L Alanine Aminotransferase (ALT/SGPT) 12 0-55 U/L Alkaline Phosphatase 66 40-136 U/L Total Creatine Kinase 95 29-168 U/L Creatine Kinase MB 0.5 <6.6 NG/ML Troponin I < 0.30 <0.30 NG/ML Total Protein 7.5 6.4-8.2 GM/DL Albumin 4.1 3.2-4.5 GM/DL TSH [place] Testing 8.54 H 0.35-4.94 UIU/ML Serum Test, Qualitative NEGATIVE NEGATIVE Urine Opiates Screen NEGATIVE NEGATIVE Urine Oxycodone Screen NEGATIVE NEGATIVE Urine Methadone Screen NEGATIVE NEGATIVE Urine Propoxyphene Screen NEGATIVE NEGATIVE Acetaminophen Level < 10 L 10-30 UG/ML Urine Barbiturates Screen POSITIVE H NEGATIVE Ur Tricyclic Antidepressants Screen NEGATIVE NEGATIVE Urine Phencyclidine Screen NEGATIVE NEGATIVE Urine Amphetamines Screen NEGATIVE NEGATIVE Urine Methamphetamines Screen NEGATIVE NEGATIVE Urine Benzodiazepines Screen POSITIVE H NEGATIVE Urine Cocaine Screen NEGATIVE NEGATIVE Urine Cannabinoids Screen NEGATIVE NEGATIVE Serum Alcohol < 10 <10 MG/DL My Orders Orders - RENÉ ORTEZ DO Ammonia Inhalation (Ammonia Inhalation) (02/28/17 13:47) Saline Lock/Iv-Start (02/28/17 13:53) Ekg Tracing (02/28/17 13:53) Catheter(Urinary) Insert & Ass 03,15 (02/28/17 13:53) O2 (02/28/17 13:53) Monitor-Rhythm Ecg Trace Only (02/28/17 13:53) Ct Head Wo-R/O Stroke (02/28/17 13:53) Acetaminophen (02/28/17 13:53) Alcohol (02/28/17 13:53) Cbc With Automated Diff (02/28/17 13:53) Comprehensive Metabolic Panel (02/28/17 13:53) Creatine Kinase (02/28/17 13:53) Creatine Kinase Mb (02/28/17 13:53) Drug Screen Stat (Urine) (02/28/17 13:53) Hcg,Qualitative Serum (02/28/17 13:53) Lactic Acid Analyzer (02/28/17 13:53) Magnesium (02/28/17 13:53) Protime With Inr (02/28/17 13:53) Partial Thromboplastin Time (02/28/17 13:53) Thyroid Analyzer (02/28/17 13:53) Troponin I (02/28/17 13:53) Ua Culture If Indicated (02/28/17 13:53) Blood Culture (02/28/17 13:53) Chest 1 View, Ap/Pa Only (02/28/17 13:53) Urine Culture (02/28/17 13:44) Free T4 (Free Thyroxine) (02/28/17 13:44) Vital Signs/I&O Vital Sign - Last 12Hours 02/28/17 13:36 Temp 98.0 Pulse 106 Resp 23 B/P (MAP) 137/77 Capillary Refill : Departure Impression Impression: Primary Impression: Pseudoseizures Additional Impression: UTI (urinary tract infection) Disposition: 01 HOME, SELF-CARE Condition: Stable Departure-Patient Inst. Referrals: NO,LOCAL PHYSICIAN (PCP/Family) Primary Care Physician Patient Instructions: Urinary Tract Infection, Adult (DC) Add. Discharge Instructions: TAKE YOUR ANTIBIOTICS AND OTHER MEDICATIONS EXACTLY PRESCRIBED FOLLOW UP WITH DR. OF CHOICE IN 7-10 DAYS FOR FURTHER CARE--CALL TODAY TO MAKE APPOINTMENT All discharge instructions reviewed with patient and/or family. Voiced understanding. RENÉ ORTEZ DO Feb 28, 2017 15:18
[2017-02-28 15:40] LABS: FREE T4 (FREE THYROXINE) 0.78 NG/DL (0.70-1.48)
[2017-02-28] MEDS ORDERED: NALOXONE 2 MG/2 ML (NARCAN) SYR IV ONE (18:30)
== END 2017-02-28 15:19 | disposition home or self-care (01) ==
LOC: EDUNIT# 13:36 → ER 13:37
DX: G40.909 Epilepsy, unspecified, not intractable, without status epilepticus (principal); N39.0 Urinary tract infection, site not specified; E03.9 Hypothyroidism, unspecified; F41.9 Anxiety disorder, unspecified; F32.9 Major depressive disorder, single episode, unspecified
CPT/HCPCS: 51702; 70450; 71045; 80053; 80306; 80320; 80329; 81000; 82550; 82553; 83735; 84439; 84443; 84484; 84703; 85610; 85730; 87040; 87088; 93005; 93041